=== PATIENT | female | born 1965 | race Caucasian/White ===

== ENCOUNTER 2017-01-02 09:41 | Emergency (ER) | payer OTHER ==
[2017-01-02] MEDS ORDERED: LORazepam 2 MG/ML INJ ONE (09:47)
[2017-01-02] MEDS ORDERED: fentaNYL 100 MCG/2 ML INJ ONE (09:47)
[2017-01-02] MEDS ORDERED: fentaNYL 100 MCG/2 ML INJ IVP ONE ×2 (09:58→10:20)
[2017-01-02] MEDS ORDERED: LORazepam 2 MG/ML INJ IVP ONE ×2 (09:58→10:20)
--- NOTE | 2017-01-02 09:58 | EDPHY ---
H & P Time Seen by Provider: 01/02/17 09:43 HPI/ROS: CHIEF COMPLAINT: Left shoulder injury HISTORY OF PRESENT ILLNESS: 51-year-old female arrives by ambulance complaining of acute left shoulder injury. Today is "tube to work today" and the patient was taking inner tube to work when she impacted her left shoulder against a rock and then other tubers impacted her left shoulder. She was unable to pedal door and subsequently was extricated by EMS and rescue by removing her with her in her to. At no point was there a submersion, drowning, near drowning or aspiration of water. She is complaining of an acute left shoulder pain. Prior history of left humerus fracture. No history shoulder dislocation. There were no periods of prolonged immersion in water for concerns of her hypothermia by EMS. She denies: Head injury, midline C-spine pain or injury, alcohol or drug use, chest pain or trauma, back pain or trauma, straddle injury, peripheral paresthesia, weakness, numbness, back pain or trauma, dyspnea PRIMARY CARE PROVIDER: REVIEW OF SYSTEMS: A ten point review of systems was performed and is negative with the exception of the items mentioned in the HPI PAST MEDICAL/SURGICAL HISTORY: Remote history of Right humerus fracture with ORIF at [facility]. . no anticoagulant use, no relevant medical/ surgical history SOCIAL HISTORY: denies alcohol use at time of incident. Works for the [employer] ([place]). PHYSICAL EXAM 1) GENERAL: Well-developed, well-nourished, alert and oriented. Appears uncomfortable. She is wet. Appears anxious 2) HEAD: Normocephalic, atraumatic 3) HEENT: Pupils equal, round, reactive to light bilaterally. Negative Horners. Nasopharynx, oropharynx, clear. No deformity or angulation of nose. No septal hematoma. No rhinorrhea. No oral trauma. Ears bilaterally with normal tympanic membranes. No hemotympanum. No fluid or blood in the external auditory canal. No raccoon eyes. No Kauffman sign. Teeth are normally aligned with no gross malocclusion, TMJ bilaterally nontender, facial bones nontender including the zygomatic arch, maxilla mandible. 4) NECK: No cervical collar is on. Posterior cervical spine is nontender, no stepoff, no effusion. Full range of motion which does not elicit any midline cervical spine pain, no posterior midline tenderness, no step-off. 5) LUNGS: Clear to auscultation bilaterally, no wheezes, no rhonchi, no retractions. No obvious signs of trauma. No chest wall pain. No flaring, no grunting. Moving symmetrically. No crepitus. 6) HEART: Regular rate and rhythm, 7) ABDOMEN: No guarding, no rebound, no focal tenderness, no peritoneal signs, no signs of trauma, no ecchymosis 8) MUSCULOSKELETAL: Left upper extremity: There is a lateral step-off anterior fullness as well as tenderness to palpation left shoulder. The remainder humerus is nontender. Intact skin. No tenting. Bilateral deltoid sensation intact. Radial ulnar median nerve function intact distally. Remainder left upper extremity nontender. 9) BACK: No midline vertebral tenderness, no fluctuance, no step-off, no obvious trauma, no visual or palpable abnormality. 10) SKIN: No laceration. No abrasion DIFFERENTIAL DIAGNOSIS: in no particular include but limited to fracture, dislocation, subluxation (Margarette,Matthieu Mirela) Constitutional: Initial Vital Signs Temperature (C) 36.6 C 01/02/17 10:04 Heart Rate 63 01/02/17 10:04 Respiratory Rate 18 01/02/17 10:04 Blood Pressure 139/103 H 01/02/17 10:04 O2 Sat (%) 93 01/02/17 10:04 O2 Delivery Mode [Post Non-Rebreather Mask Procedure 1st] O2 Delivery Mode [Procedural Non-Rebreather Mask 1st] O2 Delivery Mode [.Immediate Oxymizer,Non-Rebreather Mask Pre-Procedure] O2 Delivery Mode Room Air O2 (L/minute) [Post Procedure 12 1st] O2 (L/minute) [Procedural 1st] 12 O2 (L/minute) [.Immediate Pre- 12 Procedure] O2 (L/minute) 2 Allergies/Adverse Reactions: No Known Allergies Allergy (Unverified 01/02/17 10:16) Home Medications: Medication Instructions Recorded Hydrocodone/APAP 5/325 [[place] 1 tab PO Q6 PRN #10 tab 01/02/17 5/325 (RX)] MDM/Departure - MDM Imaging Results: Imaging Impressions Shoulder X-Ray 01/02/17 09:49 Impression: 1. Anterior dislocation left humeral head. Shoulder X-Ray 01/02/17 10:51 Impression: 1. Reduction in anterior left shoulder dislocation. No fracture. 2. Intramedullary lytic lesion mid left humerus. Additional radiographic characterization requested. Results called to Adrian Pfeiffer PA-C, at 12:00 PM. Humerus X-Ray 01/02/17 12:00 Impression: 1. Deformity mid left humerus is compatible with prior healed fracture. Imaging Impressions Shoulder X-Ray 01/02/17 09:49 Impression: 1. Anterior dislocation left humeral head. Shoulder X-Ray 01/02/17 10:51 Impression: 1. Reduction in anterior left shoulder dislocation. No fracture. 2. Intramedullary lytic lesion mid left humerus. Additional radiographic characterization requested. Results called to Adrian Pfeiffer PA-C, at 12:00 PM. Humerus X-Ray 01/02/17 12:00 Impression: 1. Deformity mid left humerus is compatible with prior healed fracture. Images reviewed myself (Matthieu Pfeiffer) Procedures: Procedure: Dislocation reduction. Procedural sedation provided by Dr. Winslow with IV propofol. The dislocation of the left shoulder was reduced using traction counter traction technique without complications. Post reduction the patient's neurovascular exam is normal. Post reduction x-ray demonstrates reduction of the joint to the anatomic position. The procedure was performed by myself. Procedure: Splint A left upper extremity sling was applied by ER oral surgery technician. After application of the splint I returned and re-examined the patient. The splint was adequately immobilizing the joint and distal to the splint the patient's circulation and sensation were intact. Patient shows no signs of compartment syndrome. Was given orthopedic precautions. (Matthieu Pfeiffer) Medications Given: Discontinued Medications Fentanyl (Sublimaze) 100 mcg IVP EDNOW ONE Stop: 01/02/17 09:59 Last Admin: 01/02/17 09:59 Dose: 100 mcg Fentanyl (Sublimaze) 100 mcg IVP EDNOW ONE Stop: 01/02/17 10:21 Last Admin: 01/02/17 10:20 Dose: 100 mcg Lorazepam (Ativan Injection) 1 mg IVP EDNOW ONE Stop: 01/02/17 09:59 Last Admin: 01/02/17 09:59 Dose: 1 mg Lorazepam (Ativan Injection) 1 mg IVP EDNOW ONE Stop: 01/02/17 10:21 Last Admin: 01/02/17 10:20 Dose: 1 mg Propofol (Diprivan) 60 mg IVP EDNOW ONE Stop: 01/02/17 11:20 Last Admin: 01/02/17 11:20 Dose: 60 mg ED Course/Re-evaluation: INDEPENDENT PHYSICIAN DOCUMENTATION I evaluated and participated in the management of the patient. I also evaluated the patient independently. My co-signature indicates that I have reviewed this chart and I agree with the findings and plan of care as documented. My personal H&P findings include: Patient presents to the ED with atraumatic left shoulder dislocation. The patient is noted to be neurologically intact. She has moderate to severe pain with any attempted movement. Physical examination demonstrates clinical dislocation of the left glenohumeral joint. Physical examination also demonstrates no evidence of an obvious neurovascular deficit. ED COURSE: The patient required conscious sedation and reduction of her shoulder joint. This was performed by myself without complication. PROCEDURE: Procedure: Conscious sedation. Indication: Right shoulder dislocation The patient is an appropriate candidate to tolerate procedural sedation. The patient's vital signs and mental status are appropriate. The risks, benefits and alternatives of the sedation were discussed with the patient. The patient is ASA classification 1. The patient's Mallampati airway score was 1 and the patient did meet the 3-3-2 airway measurements. A time out was completed. The patient was sedated with 60 mg of propofol. The patient was monitored with continuous pulse oximetry, research biologist and end tidal CO2. There were no complications and no significant hypoxemia. I performed both the sedation and the procedure. The total time I spent at the bedside during the procedural sedation was 18 minutes. The patient was examined after the procedural sedation and has returned to their pre-sedation baseline with normal vital signs and a normal examination. Procedure: Dislocation reduction. Indication: Dislocation The shoulder was reduced in the usual fashion without complications using counter traction and scapular rotation. Post reduction the patient's neurovascular exam is normal. Post reduction x-ray demonstrates reduction of the joint to the anatomic position. The procedure was performed by myself. The patient has been placed in a sling will be discharged home with customary aftercare instructions and orthopedic follow-up. (Nikhil Winslow) - Depart Disposition: Home, Routine, Self-Care Clinical Impression: Dislocation of left shoulder joint Qualifiers: Encounter type: initial encounter Qualified Code(s): S43.005A - Unspecified dislocation of left shoulder joint, initial encounter Condition: Good Instructions: Shoulder Dislocation (ED) Additional Instructions: Return to the ER immediately if you experience discoloration, have worsening pain, numbness, tingling, or any other symptoms that concern you. If you received x-rays in the emergency department today, be advised, that ligamentous , tendon, muscular, and other non-bony injury cannot be fully ruled out. Try to keep your affected extremity elevated above the level of your chest, and keep cold packs on the affected area, for the next 48 hours. Prescriptions: Hydrocodone/APAP 5/325 [[place] 5/325 (RX)] 1 tab PO Q6 PRN #10 tab PRN Reason: Pain, Severe Referrals: Azar Browning MD [Medical Doctor] - As per Instructions
[2017-01-02] MEDS ORDERED: PROPOFOL 200 MG/20 ML VIAL ONE (10:41)
[2017-01-02] MEDS ORDERED: PROPOFOL 200 MG/20 ML VIAL IVP ONE (11:19)
[2017-01-02 11:49] VITALS: RESP 16
[2017-01-02 13:39] VITALS: BP 114/69; PULSE 72; TEMP 98.6; O2SAT 93
== END 2017-01-02 13:33 | disposition home or self-care (01) ==
LOC: EDBD → EDUNIT#
PROC: 0RSKXZZ Reposition Left Shoulder Joint, External Approach (ICD-10-PCS; principal; 2017-01-02)
DX: S43.005A Unspecified dislocation of left shoulder joint, initial encounter (principal); W22.8XXA Striking against or struck by other objects, initial encounter; Y92.89 Other specified places as the place of occurrence of the external cause; Y99.0 Civilian activity done for income or pay; Y93.89 Activity, other specified
CPT/HCPCS: 96374; J2060; J2704; J3010

== ENCOUNTER → 2017-03-11 | Outpatient (CLI) | payer OTHER | LOC: FIMAGING 07:57 | PROVIDERS: ATTEND Obstetrics & Gynecology | DX: Z12.31 Encounter for screening mammogram for malignant neoplasm of breast (principal) | CPT/HCPCS: G0202 ==

== ENCOUNTER → 2018-03-12 | Outpatient (CLI) | payer OTHER | LOC: FIMAGING 12:47 | PROVIDERS: ATTEND Nurse Practitioner Women's Health | DX: Z12.31 Encounter for screening mammogram for malignant neoplasm of breast (principal) ==